=== PATIENT | male | born 1985 | race Caucasian/White ===

== ENCOUNTER 2021-03-21 08:58 | Emergency (ER) | payer OTHER ==
[~2021-03-21] VITALS: Ht 177.8 cm; Wt 159.1 kg
[2021-03-21 09:17] VITALS: TEMP 99.3
[2021-03-21] MEDS ORDERED: PEPCID 20MG TAB20 MG (09:25)
[2021-03-21 10:11] LABS: BASO % 0.3 % (0.0-2.0); EOS # 0.1 (0.0-0.7); GRAN # 7.6 (1.4-6.5); GRAN % 78.7 % (42.2-75.2); LYMPH # 1.4 (1.2-3.4); LYMPH % 14.4 % (20.0-51.0); MEAN CELL VOLUME 90 fl (80.0-100.0); MEAN CORPUSCULAR HGB CONC 35 g/dl (33.0-37.0); MEAN PLATELET VOLUME 12.4 fl (7.4-10.4); MONO # 0.5 (0.1-0.6); MONO % 5.2 % (1.7-9.3); PLATELET COUNT 207 K/mm3 (130-400); REDCELL DISTRIBUTION WIDTH-CV 13.9 % (11.5-14.5)
[2021-03-21 10:13] LABS: ALBUMIN 4.5 gm/dL (3.5-5.0); BILIRUBIN,TOTAL 0.8 mg/dL (0.0-1.0); C-REACTIVE PROTEIN 8.3 mg/dL (0.0-0.9); CALCIUM 9.2 mg/dL (8.4-10.2); CREATININE, serum 1.15 (0.66-1.25); POTASSIUM 3.8 mmol/L (3.4-5.0)
[2021-03-21 10:15] LABS: HEMATOCRIT 55.8 % (42.0-52.0); HEMOGLOBIN 19.3 g/dl (13.5-18.0); MEAN CORPUSCULAR HEMOGLOBIN 31 pg (27.0-31.0)
[2021-03-21] MEDS ORDERED: LEVSIN0.125 M1 PO (11:56)
[2021-03-21] MEDS ORDERED: NORCO 325 MG-51 TAB PO (11:56)
[2021-03-21 12:21] LABS: COLLECTION METHOD CLEAN CATCH
[2021-03-21 12:30] LABS: MUCOUS Present /lpf; PH 5 (5-8); SQUAMOUS EPITHELIAL 0-2 /hpf; URINE APPEARANCE Clear; URINE BACTERIA None Seen /hpf; URINE BILIRUBIN Negative (NEGATIVE); URINE BLOOD Negative (NEGATIVE); URINE COLOR Yellow; URINE GLUCOSE Negative (NEGATIVE); URINE KETONE Negative (NEGATIVE); URINE LEUKOCYTE ESTERASE Negative (NEGATIVE); URINE NITRATE Negative (NEGATIVE); URINE PROTEIN(semi-quant) Negative (NEGATIVE); URINE RBC 0-2 /hpf; URINE UROBILINOGEN Negative (NEGATIVE)
[2021-03-21 13:07] VITALS: BP 162/113; PULSE 116
== END 2021-03-21 13:52 | disposition home or self-care (01) ==
LOC: COL.ER 08:58
PROVIDERS: Physician Assistant
DX: K52.9 Noninfective gastroenteritis and colitis, unspecified (principal); K57.32 Diverticulitis of large intestine without perforation or abscess without bleeding; I10 Essential (primary) hypertension; E66.01 Morbid (severe) obesity due to excess calories; F17.210 Nicotine dependence, cigarettes, uncomplicated; Z68.43 Body mass index [BMI] 50.0-59.9, adult
CPT/HCPCS: C9113; J1170; J2270; J2405; J7030; Q9967